=== PATIENT | male | born 1990 | race African-American/Black ===

== ENCOUNTER 2017-07-08 11:24 | Emergency (ER) | payer OTHER ==
[2017-07-08] MEDS ORDERED: diphenhydrAMINE INJ 50 MG/ML VIAL IVP STA (12:22)
[2017-07-08] MEDS ORDERED: SODIUM CHLORIDE 0.9% 1,000 ML IV ONE (12:22)
[2017-07-08] MEDS ORDERED: PROCHLORPERAZINE 10 MG/2 ML VIAL IVP STA (12:23)
[2017-07-08] MEDS ORDERED: PROCHLORPERAZINE 10 MG/2 ML VIAL ONE (12:45)
[2017-07-08] MEDS ORDERED: diphenhydrAMINE INJ 50 MG/ML VIAL ONE (12:45)
[2017-07-08 13:34] VITALS: BP 103/58
--- NOTE | 2017-07-08 13:36 | ED Physician Documentation ---
PD HPI HEADACHE - Stated complaint Stated Complaint: MIGRAINE,NAUSEA - Chief complaint Chief Complaint: General - History obtained from History obtained from: Patient, Friend - History of Present Illness Timing - onset: Last night Timing - details: Still present Worst headache ever?: Worst headache ever? (no) Location: Global Quality: Aching Associated symptoms: Nausea. No: Fever, Stiff neck, Vomiting, Weakness, Numbness Similar symptoms before: No diagnosis - Additional information Additional information: The patient is an otherwise healthy 27-year-old male who presents with a headache that started last night and persists this morning. He reports associated nausea, but denies vomiting. He denies fever, sore throat, cough, numbness or weakness. He denies any recent trauma or drug use. 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 The last time was about 2 years ago. Review of Systems Constitutional: denies: Fever Eyes: denies: Photophobia, Irritation Ears: denies: Tinnitus/ringing Nose: denies: Congestion Throat: denies: Sore throat Cardiac: denies: Chest pain / pressure Respiratory: denies: Dyspnea, Cough GI: reports: Nausea. denies: Abdominal Pain, Vomiting : denies: Dysuria Skin: denies: Rash Musculoskeletal: denies: Neck pain, Back pain Neurologic: reports: Headache. denies: Focal weakness, Numbness, Altered mental status, Head injury PD PAST MEDICAL HISTORY - Past Medical History Past Medical History: No Cardiovascular: None Respiratory: None Neuro: None Endocrine/Autoimmune: None - Past Surgical History Past Surgical History: Yes General: Appendectomy - Present Medications Home Medications: Ambulatory Orders Medication Instructions Recorded Confirmed No Known Home Medications [No 07/08/17 07/08/17 Known Home Medications] - Allergies Allergies/Adverse Reactions: Allergies Allergy/AdvReac Type Severity Reaction Status Date / Time No Known Drug Allergies Allergy Verified 07/08/17 11:40 - Social History Does the pt smoke?: No Smoking Status: Never smoker Does the pt drink ETOH?: No Does the pt have substance abuse?: No - Immunizations Immunizations are current?: Yes PD ED PE NORMAL - Vitals Vital signs reviewed: Yes (normal) - General General: Alert and oriented X 3 - HEENT HEENT: Atraumatic, PERRL, EOMI, Ears normal, Pharynx benign, Other (Fundi with sharp disc margins, without papilledema.) - Neck Neck: Supple, no meningeal sign, No adenopathy - Cardiac Cardiac: RRR, No murmur - Respiratory Respiratory: No respiratory distress, Clear bilaterally - Abdomen Abdomen: Soft, Non tender - Back Back: No CVA TTP, No spinal TTP - Derm Derm: No rash - Extremities Extremities: No edema, No calf tenderness / cord - Neuro Neuro: Alert and oriented X 3, No motor deficit, No sensory deficit, Normal speech Results - Vitals Vitals: Oxygen O2 Source Room air PD MEDICAL DECISION MAKING - ED course Complexity details: re-evaluated patient, considered differential, d/w patient, d/w family ED course: The patient's presentation is significant for headache and nausea, with mild dehydration. His clinical presentation does not suggest subarachnoid hemorrhage , meningitis, or pseudotumor cerebri. Treatment in the emergency department included administration of normal saline 1 L IV, diphenhydramine 25 mg IV, and prochlorperazine 10 mg IV. His symptoms resolved with the above treatment, and he demonstrated ability to drink fluids without recurrent nausea. 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 Departure - Departure Disposition: 01 Home, Self Care Clinical Impression: Dehydration, mild Headache Qualifiers: Headache type: unspecified Headache chronicity pattern: acute headache Intractability: not intractable Qualified Code(s): R51 - Headache Condition: Stable Instructions: ED Cephalgia Unspecified Follow-Up: [facility] [Provider Group] Comments: Drink plenty of fluids. You can use Tylenol or ibuprofen if needed for recurrent headache. Follow up with your primary physician within 2 weeks. Call to schedule appointment. Return to the emergency department if you develop increasing headache, persistent vomiting, or otherwise worsening symptoms. Discharge Date/Time: 07/08/17 13:49
== END 2017-07-08 13:49 | disposition home or self-care (01) ==
LOC: ED 11:24
DX: E86.0 Dehydration (principal); R51 Headache
CPT/HCPCS: 96361; 96374; 96375; 99283; 99284

== ENCOUNTER 2017-12-13 13:48 | Emergency (ER) | payer OTHER ==
[2017-12-13 13:59] VITALS: BP 143/73
--- NOTE | 2017-12-13 16:04 | ED Physician Documentation ---
PD HPI LOWER EXT INJURY - Stated complaint Stated Complaint: LEFT KNEE PX - Chief complaint Chief Complaint: Ext Problem - History obtained from History obtained from: Patient - History of Present Illness PD HPI LOW EXT INJURY LOCATION: Left, Knee Type of injury: Twist (he was running and planted foot into small hole, causing impact and some twist, with onset of sharp pain anterior knee above/lateral kneecap. Pain with walking. Resting ROM not hurting. No swelling.) Where injury occurred: Street Timing - onset: Today Timing - details: Abrupt onset, Still present Worsened by: Other (walking). No: Palpating Associated symptoms: No: Weakness, Numbness, Swelling Contributing factors: No: Prior ortho surgery Similar symptoms before: Has not had sx before Recently seen: Not recently seen Review of Systems Constitutional: denies: Fever, Chills, Myalgias Skin: denies: Rash, Lesions, Abrasion (s), Laceration (s) Neurologic: denies: Focal weakness, Numbness PD PAST MEDICAL HISTORY - Past Medical History Cardiovascular: None Respiratory: None Neuro: None Endocrine/Autoimmune: None - Past Surgical History Past Surgical History: Yes General: Appendectomy - Present Medications Home Medications: Ambulatory Orders Medication Instructions Recorded Confirmed Naproxen [Naprosyn] 500 mg PO BID #20 tablet 12/13/17 - Allergies Allergies/Adverse Reactions: Allergies Allergy/AdvReac Type Severity Reaction Status Date / Time No Known Drug Allergies Allergy Verified 12/13/17 13:59 - Social History Does the pt smoke?: No Smoking Status: Never smoker Does the pt drink ETOH?: No Does the pt have substance abuse?: No - Immunizations Immunizations are current?: Yes PD ED PE NORMAL - Vitals Vital signs reviewed: Yes - General General: Alert and oriented X 3, No acute distress, Well developed/nourished - Derm Derm: Normal color, Warm and dry, No rash - Extremities Extremities: No edema, No calf tenderness / cord, Other (knee without effusion. Cruciate and collateral ligaments firm and without pain. No click nor pop with ROM. Pain with full leg extension and also with weight bearing and pivot. ) Results - Vitals Vitals: Vital Signs - 24 hr 12/13/17 13:56 Temperature 36.8 C Heart Rate 74 Respiratory 16 Rate Blood Pressure 143/73 H O2 Saturation 100 Oxygen O2 Source Room air - Rads (name of study) knee xray Radiology: Prelim report reviewed, EMP read contemporaneously (normal) PD MEDICAL DECISION MAKING - ED course Complexity details: reviewed results, considered differential, d/w patient Departure - Departure Disposition: 01 Home, Self Care Clinical Impression: Knee sprain Qualifiers: Encounter type: initial encounter Involved ligament of knee: unspecified ligament Laterality: left Qualified Code(s): S83.92XA - Sprain of unspecified site of left knee, initial encounter Condition: Stable Record reviewed to determine appropriate education?: Yes Instructions: ED Meniscal Injury Knee Poss, ED Sprain Knee Follow-Up: [facility] [Provider Group] Prescriptions: Naproxen [Naprosyn] 500 mg PO BID #20 tablet Comments: This sounds likely to be a strain of some muscles around the knee and should improve with protecting the knee with a knee brace and partial weightbearing with crutches and a bit of time. There may be some cartilage injury of the knee however and this also is likely to improve with the above treatment. Follow-up with your primary care or orthopedics if not better over the next 6-7 days, call for an appointment. Use some naproxen twice daily. Knee brace when up and around. Weightbearing to nonweightbearing as needed for comfort. Discharge Date/Time: 12/13/17 17:03
--- NOTE | 2017-12-13 16:20 | XRAY Preliminary Report ---
Exam: XR KNEE 4 VIEW LT IMPRESSION: Normal knee radiography. [facility] SITE ID: [id number]
--- NOTE | 2017-12-13 16:26 | XRAY Report ---
EXAM: LEFT KNEE RADIOGRAPHY EXAM DATE: 12/13/2017 03:59 PM. CLINICAL HISTORY: Patient felt a pop with subsequent pain in the knee while running. COMPARISON: None. TECHNIQUE: 4 views. FINDINGS: Bones: Normal. No fractures or bone lesions. Joints: Normal. No effusion. No subluxations. Soft Tissues: Normal. No soft tissue swelling. IMPRESSION: Normal knee radiography. [facility] Referring Provider Line: [phone] SITE ID: [id number]
[2017-12-13] MEDS ORDERED: IBUPROFEN 600 MG TABLET PO STA (16:37)
== END 2017-12-13 17:03 | disposition home or self-care (01) ==
LOC: ED 13:48
DX: S83.92XA Sprain of unspecified site of left knee, initial encounter (principal); X50.1XXA Overexertion from prolonged static or awkward postures, initial encounter; Y93.02 Activity, running; Y92.488 Other paved roadways as the place of occurrence of the external cause
CPT/HCPCS: 73564; 99283; A9270

== ENCOUNTER 2018-02-09 09:48 | Emergency (ER) | payer OTHER ==
[2018-02-09 10:05] VITALS: BP 126/79
[2018-02-09] MEDS ORDERED: cefTRIAXone 250 MG VIAL IM STA (10:28)
[2018-02-09] MEDS ORDERED: LIDOCAINE 1% 2 ML VIAL SUBQ ONE (10:28)
[2018-02-09] MEDS ORDERED: AZITHROMYCIN 250 MG TABLET PO STA (10:28)
--- NOTE | 2018-02-09 10:31 | ED Physician Documentation ---
PD HPI MALE - Stated complaint Stated Complaint: MALE - Chief complaint Chief Complaint: UTI - History obtained from History obtained from: Patient - History of Present Illness Timing - onset: How many days ago (2) Timing - duration: Days (2) Timing - details: Gradual onset, Still present Associated symptoms: Dysuria, Discharge PD HPI MALE CONTRIB FACTORS: Sexually active, Exposed to STD Similar symptoms before: Diagnosis (GC) Recently seen: Not recently seen - Additional information Additional information: 28-year-old male with a new sexual partner has developed a urethral discharge and sore throat 2 days ago. He has had this happen to him previously was treated for STD. Review of Systems Constitutional: denies: Fever Eyes: denies: Decreased vision Ears: denies: Ear pain Nose: denies: Rhinorrhea / runny nose Throat: reports: Sore throat Cardiac: denies: Chest pain / pressure, Palpitations Respiratory: denies: Cough GI: denies: Vomiting : reports: Dysuria, Discharge Skin: denies: Rash Musculoskeletal: denies: Neck pain, Back pain, Extremity pain PD PAST MEDICAL HISTORY - Past Medical History Cardiovascular: None Respiratory: None Endocrine/Autoimmune: None - Past Surgical History Past Surgical History: Yes General: Appendectomy - Present Medications Home Medications: Ambulatory Orders Medication Instructions Recorded Confirmed Naproxen [Naprosyn] 500 mg PO BID #20 tablet 12/13/17 - Allergies Allergies/Adverse Reactions: Allergies Allergy/AdvReac Type Severity Reaction Status Date / Time No Known Drug Allergies Allergy Verified 12/13/17 13:59 - Social History Does the pt smoke?: No Smoking Status: Never smoker Does the pt drink ETOH?: No Does the pt have substance abuse?: No - Immunizations Immunizations are current?: Yes - POLST Patient has POLST: No PD ED PE NORMAL - Vitals Vital signs reviewed: Yes (normal ) - General General: Alert and oriented X 3, No acute distress, Well developed/nourished - HEENT HEENT: Atraumatic, PERRL, EOMI - Respiratory Respiratory: No respiratory distress - Male Male : Other (There is inflamation at the meatus and small amount of discharge. The testes are non-tender. ) - Derm Derm: Normal color, Warm and dry, No rash - Extremities Extremities: No deformity, No edema - Neuro Neuro: No motor deficit, No sensory deficit, Normal speech Eye Opening: Spontaneous Motor: Obeys Commands Verbal: Oriented GCS Score: 15 - Psych Psych: Normal mood, Normal affect Results - Vitals Vitals: Vital Signs - 24 hr 02/09/18 10:01 Temperature 36.5 C Heart Rate 75 Respiratory 16 Rate Blood Pressure 126/79 O2 Saturation 100 Oxygen O2 Source Room air PD MEDICAL DECISION MAKING - ED course Complexity details: reviewed old records, considered differential, d/w patient ED course: 28-year-old male with urethral discharge has had gonorrhea previously he is treated here in the emergency department with Rocephin 250 mg IM and azithromycin 1 g orally. - Sepsis Event Vital Signs: Vital Signs - 24 hr 02/09/18 10:01 Temperature 36.5 C Heart Rate 75 Respiratory 16 Rate Blood Pressure 126/79 O2 Saturation 100 Oxygen O2 Source Room air Departure - Departure Disposition: 01 Home, Self Care Clinical Impression: STD (male) Instructions: ED STD Male Treated Follow-Up: [facility] [Provider Group]
== END 2018-02-09 11:04 | disposition home or self-care (01) ==
LOC: ED 09:48
DX: A64 Unspecified sexually transmitted disease (principal); Z86.19 Personal history of other infectious and parasitic diseases
CPT/HCPCS: 87491; 87591; 96372; 99282; 99283; A9270

== ENCOUNTER 2018-04-05 09:33 | Emergency (ER) | payer OTHER ==
[2018-04-05] MEDS ORDERED: DEXAMETHASONE 10 MG/ML VIAL PO STA (10:57)
--- NOTE | 2018-04-05 10:57 | ED Physician Documentation ---
History of Present Illness - Stated complaint Stated Complaint: SORE THROAT/FEVER - Chief complaint Chief Complaint: Heent - Additonal information Additional information: hx from pt very nice healthy immunized 28 [employer] male to ED with sore throat for 2 days no fever cough myalgias NVD no recent travel deployment or sick contacts Review of Systems Constitutional: denies: Fever, Chills Throat: reports: Sore throat Cardiac: denies: Chest pain / pressure Respiratory: denies: Dyspnea, Cough GI: denies: Abdominal Pain, Nausea, Vomiting PD PAST MEDICAL HISTORY - Past Medical History Past Medical History: No Cardiovascular: None Respiratory: None Endocrine/Autoimmune: None - Past Surgical History Past Surgical History: Yes General: Appendectomy - Present Medications Home Medications: Ambulatory Orders Medication Instructions Recorded Confirmed Naproxen [Naprosyn] 500 mg PO BID #20 tablet 12/13/17 - Allergies Allergies/Adverse Reactions: Allergies Allergy/AdvReac Type Severity Reaction Status Date / Time No Known Drug Allergies Allergy Verified 04/05/18 09:41 - Social History Does the pt smoke?: No Smoking Status: Never smoker Does the pt drink ETOH?: No Does the pt have substance abuse?: No - Immunizations Immunizations are current?: Yes - POLST Patient has POLST: No PD ED PE NORMAL - Vitals Vital signs reviewed: Yes - HEENT HEENT: Ears normal, Moist mucous membranes. No: Pharynx benign (enlarged tonsils with crypts and small exudate, no trismus or CHALKER SOLES, ant no posterior adenopathy, ) - Neck Neck: Supple, no meningeal sign - Cardiac Cardiac: RRR - Respiratory Respiratory: No respiratory distress, Clear bilaterally - Abdomen Abdomen: Soft, Non tender, No organomegaly Results - Vitals Vitals: Vital Signs - 24 hr 04/05/18 09:38 Temperature 36.7 C Heart Rate 68 Respiratory 16 Rate Blood Pressure 114/72 O2 Saturation 100 Oxygen O2 Source Room air - Labs Labs: Laboratory Tests 04/05/18 09:45 Group A Strep Rapid Negative PD MEDICAL DECISION MAKING - ED course ED course: MSE performed infection identified = pharyngitis safe for dc - Sepsis Event Vital Signs: Vital Signs - 24 hr 04/05/18 09:38 Temperature 36.7 C Heart Rate 68 Respiratory 16 Rate Blood Pressure 114/72 O2 Saturation 100 Oxygen O2 Source Room air Departure - Departure Disposition: 01 Home, Self Care Clinical Impression: Pharyngitis Qualifiers: Pharyngitis/tonsillitis etiology: unspecified etiology Qualified Code(s): J02.9 - Acute pharyngitis, unspecified Condition: Good Instructions: ED Pharyngitis Viral Report Pending Follow-Up: [facility] [Provider Group] Comments: The rapid strep test was negative. An official strep culture will also be run and the ER staff will call you if it is positive and antibiotics are needed The dose of steroids we gave you in the ER should help decrease the pain and swelling Rest and drink plenty of fluids
[2018-04-05] MEDS ORDERED: CHERRY SYRUP 10 ML UDC PO ONE (11:02)
[2018-04-05 11:07] VITALS: BP 118/73
== END 2018-04-05 11:16 | disposition home or self-care (01) ==
LOC: ED 09:33
DX: J02.9 Acute pharyngitis, unspecified (principal)
CPT/HCPCS: 87070; 87430; 99282; 99283; A9270

== ENCOUNTER 2018-10-03 14:16 | Emergency (ER) | payer OTHER ==
[2018-10-03 15:54] LABS: BASOPHILS % (AUTO) 0.8 %; EOSINOPHILS % (AUTO) 0.7 %; HGB - HEMOGLOBIN 16.3 g/dL (14.0-18.0); LYMPHOCYTES % (AUTO) 46.3 %; MEAN CORPUSCULAR HEMOGLOBIN 30.7 pg (27.0-31.0); MEAN CORPUSCULAR HGB CONC 33.3 g/dL (32.0-36.0); MEAN CORPUSCULAR VOLUME 92.1 fL (80.0-94.0); MEAN PLATELET VOLUME 10.3 fL (7.4-11.4); MONOCYTES # (AUTO) 0.4 10^3/uL (0.0-1.0); MONOCYTES % (AUTO) 8.6 %; NEUTROPHILS # (AUTO) 1.9 10^3/uL (1.5-6.6); NEUTROPHILS % (AUTO) 43.6 %; PLT - PLATELET COUNT 131 10^3/uL (130-450); RED BLOOD COUNT 5.31 10^6/uL (4.70-6.10); RED CELL DISTRIBUTION WIDTH 13.2 % (12.0-15.0); WHITE BLOOD COUNT 4.4 x10^3/uL (4.8-10.8)
[2018-10-03 16:00] LABS: ALBUMIN 4.6 g/dL (3.2-5.5); ALBUMIN/GLOBULIN RATIO 1.4 (1.0-2.2); BILIRUBIN,TOTAL 1.1 mg/dL (0.2-1.0); CALCIUM 9.2 mg/dL (8.5-10.3)
[2018-10-03] MEDS ORDERED: SODIUM CHLORIDE 0.9% 1,000 ML IV ONE (16:01)
--- NOTE | 2018-10-03 16:07 | ED Physician Documentation ---
PD HPI SYNCOPE - Stated complaint Stated Complaint: Dizzy/Light headed - Chief complaint Chief Complaint: Neuro - History obtained from History obtained from: Patient - History of Present Illness Witnessed: Witnessed (He has been in a inexplicably fatigued for the last week and a half. He is been sleeping in normal amounts but feeling very tired and it even when he gets up. He has not had a sore throat or body aches. There is no associated chest pain or trouble breathing. Last night he had a syncopal episode, he gotten up from the couch and felt dizzy for seconds and then passed out without injury. It was very brief.) Review of Systems Constitutional: reports: Chills, Fatigue. denies: Fever Ears: denies: Ear pain, Drainage/discharge Nose: denies: Rhinorrhea / runny nose, Congestion Throat: denies: Sore throat Cardiac: denies: Chest pain / pressure, Palpitations Respiratory: denies: Dyspnea, Cough PD PAST MEDICAL HISTORY - Past Medical History Past Medical History: No Cardiovascular: None Respiratory: None Endocrine/Autoimmune: None - Past Surgical History Past Surgical History: Yes General: Appendectomy - Present Medications Home Medications: Ambulatory Orders Medication Instructions Recorded Confirmed No Known Home Medications 10/03/18 10/03/18 - Allergies Allergies/Adverse Reactions: Allergies Allergy/AdvReac Type Severity Reaction Status Date / Time No Known Drug Allergies Allergy Verified 10/03/18 14:38 - Social History Does the pt smoke?: No Smoking Status: Never smoker Does the pt drink ETOH?: No Does the pt have substance abuse?: No - Immunizations Immunizations are current?: Yes - POLST Patient has POLST: No PD ED PE NORMAL - Vitals Vital signs reviewed: Yes - General General: Alert and oriented X 3, No acute distress - HEENT HEENT: PERRL, EOMI, Pharynx benign - Neck Neck: Supple, no meningeal sign, No bony TTP, No adenopathy - Cardiac Cardiac: RRR, No murmur - Respiratory Respiratory: No respiratory distress, Clear bilaterally - Abdomen Abdomen: Normal bowel sounds, Soft, Non tender - Back Back: No CVA TTP, No spinal TTP - Derm Derm: Normal color, Warm and dry - Extremities Extremities: No edema, No calf tenderness / cord - Neuro Neuro: Alert and oriented X 3, Normal speech - Psych Psych: Normal mood, Normal affect Results - Vitals Vitals: Vital Signs - 24 hr 10/03/18 10/03/18 14:34 16:12 Temperature 36.9 C Heart Rate 58 L 58 L Respiratory 18 18 Rate Blood Pressure 143/80 H 126/77 O2 Saturation 99 98 Oxygen O2 Source Room air - EKG (time done) 1448 Rate: Rate (enter#) (59) Rhythm: NSR Fifty [place]: Normal Intervals: Normal FL Ischemia: ST elevation c/w repol Computer interpretation: Agree with computer - Labs Labs: Laboratory Tests 10/03/18 10/03/18 10/03/18 14:38 14:39 15:40 WBC 4.4 L RBC 5.31 Hgb 16.3 Hct 48.9 MCV 92.1 MCH 30.7 MCHC 33.3 RDW 13.2 Plt Count 131 MPV 10.3 Neut # (Auto) 1.9 Lymph # (Auto) 2.0 [place] # (Auto) 0.4 Eos # (Auto) 0.0 Baso # (Auto) 0.0 Absolute Nucleated RBC 0.00 Nucleated RBC % 0.0 Manual Slide Review Indicated WBC Morphology NORMAL APPEARANCE Platelet Estimate NORMAL (130-450,000) Platelet Morphology NORMAL APPEARANCE RBC Morph Micro Appear NORMAL APPEARANCE Sodium Potassium Chloride Carbon Dioxide Anion Gap BUN Creatinine Estimated GFR (MDRD) Glucose POC Whole Bld Glucose 87 Calcium Total Bilirubin AST ALT Alkaline Phosphatase Troponin I Total Protein Albumin Globulin Albumin/Globulin Ratio Lipase Infectious [place] Assay NEGATIVE 10/03/18 10/03/18 15:40 16:23 WBC RBC Hgb Hct MCV MCH MCHC RDW Plt Count MPV Neut # (Auto) Lymph # (Auto) [place] # (Auto) Eos # (Auto) Baso # (Auto) Absolute Nucleated RBC Nucleated RBC % Manual Slide Review WBC Morphology Platelet Estimate Platelet Morphology RBC Morph Micro Appear Sodium 137 Potassium 3.7 Chloride 101 Carbon Dioxide 28 Anion Gap 8.0 BUN 16 Creatinine 1.0 Estimated GFR (MDRD) 109 Glucose 93 POC Whole Bld Glucose Calcium 9.2 Total Bilirubin 1.1 H AST 34 ALT 28 Alkaline Phosphatase 43 Troponin I < 0.04 Total Protein 8.0 Albumin 4.6 Globulin 3.4 Albumin/Globulin Ratio 1.4 Lipase 32 Infectious [place] Assay PD MEDICAL DECISION MAKING - ED course ED course: This is a 28-year-old gentleman with fatigue and a syncopal episode yesterday with an unremarkable EKG. Mild leukopenia suggests a viral process. [place] checked specifically and negative. The remainder of his workup was negative. Departure - Departure Disposition: 01 Home, Self Care Clinical Impression: Dizziness, Viral syndrome Syncope Qualifiers: Syncope type: unspecified Qualified Code(s): R55 - Syncope and collapse Condition: Good Record reviewed to determine appropriate education?: Yes Instructions: ED Fainting Unkn Cause, ED Viral Syndrome Comments: Return for new or worsening symptoms. Follow-up with your doctor tomorrow if not better.
[2018-10-03 16:20] LABS: PLATELET ESTIMATE, MANUAL NORMAL (130-450,000) (NORMAL); PLATELET MORPHOLOGY NORMAL APPEARANCE (NORMAL); RBC MORPHOLOGY (MULTIPLE) NORMAL APPEARANCE (NORMAL)
[2018-10-03 17:24] VITALS: BP 132/81
== END 2018-10-03 17:36 | disposition home or self-care (01) ==
LOC: ED 14:16
DX: R42 Dizziness and giddiness (principal); B34.9 Viral infection, unspecified; R55 Syncope and collapse
CPT/HCPCS: 36415; 80053; 83690; 84484; 85025; 86308; 93005; 96360; 99283